=== PATIENT | female | born 1965 | race Caucasian/White ===

== ENCOUNTER 2021-03-19 14:09 | Inpatient (IN) | payer BC, SELFPAY ==
[~2021-03-19] VITALS: Ht 175.3 cm; Wt 114.8 kg
[~2021-03-19 14:09] MED LIST: ALBU17AE26 IH; ALBU2.5V IH; ALPR0.25 PO; FLUT1DIS3 IH; P-EP1TAB80 PO; Proair IH; WARF5TAB2 PO; YAZ PO; levoxyl PO
[2021-03-19 14:11] VITALS: BP_SYST 141
[2021-03-19 15:21] LABS: BASOPHILS % (AUTO) 0.5 % (0.0-2.0); HEMATOCRIT 40.8 % (36-48); HEMOGLOBIN 14.1 g/dL (12.0-16.0); LYMPHOCYTES % (AUTO) 15.2 % (20.5-51.5); MEAN CORPUSCULAR HEMOGLOBIN 29 pg (27-31); MEAN CORPUSCULAR HGB CONC 35 % (32-36); MEAN CORPUSCULAR VOLUME 83 fL (79.0-98.0); MONOCYTES # (AUTO) 0.3 K/uL (0.0-1.0); MONOCYTES % (AUTO) 4.2 % (1.7-9.3); NEUTROPHILS # (AUTO) 5.5 K/uL (1.8-7.7); NEUTROPHILS % (AUTO) 80.1 % (40.0-70.0); PLATELET COUNT (AUTO) 300 K/uL (130-430); RED BLOOD CELL COUNT(AUTO) 4.94 MIL/uL (4.2-6.2); RED CELL DISTRIBUTION WIDTH 13.3 % (9.0-15.0); WHITE BLOOD COUNT (AUTO) 6.9 K/uL (4.8-10.8)
[2021-03-19 15:32] LABS: CALCIUM 9.7 mg/dL (8.4-11.0); CREATININE 0.87 mg/dL (0.55-1.30)
[2021-03-19 15:41] LABS: ALBUMIN 3.9 g/dL (3.4-4.8); TOTAL BILIRUBIN 0.4 mg/dL (0.0-1.0)
[2021-03-19 16:11] LABS: POTASSIUM 2.7 mmol/L (3.5-5.1)
[2021-03-19] MEDS ORDERED: POTASSIUM CHLORIDE 20 MEQ TAB.PRT.SR PO ONE ×2 (16:15→23:15)
[2021-03-19 16:56] LABS: PROTHROMBIN TIME 10.3 SECS (9.5-12.5)
[2021-03-19] MEDS ORDERED: ALBU2.5V7 INH (17:12)
[2021-03-19] MEDS ORDERED: LEVO125T8 PO (17:12)
[2021-03-19] MEDS ORDERED: METO25TA3 PO (17:12)
[2021-03-19] MEDS ORDERED: HYG25 PO (17:12)
[2021-03-19] MEDS ORDERED: VITD2000 PO (17:12)
[2021-03-19] MEDS ORDERED: PRED10TA PO (17:12)
[2021-03-19] MEDS ORDERED: METF-834 PO (17:12)
[2021-03-19] MEDS ORDERED: CLOPIDOGREL BISULFATE 75 MG TABLET PO ONE (18:00)
[2021-03-19] MEDS ORDERED: ACETAMINOPHEN 325 MG TABLET PO PRN (18:45)
[2021-03-19] MEDS ORDERED: ALBUTEROL SULFATE 0.083% 2.5 MG/3 ML VIAL.NEB INH PRN (18:45)
[2021-03-19] MEDS ORDERED: CHOLECALCIFEROL (VITAMIN D3) 2,000 UNIT TABLET PO SCH (18:45)
[2021-03-19] MEDS ORDERED: CLOPIDOGREL BISULFATE 75 MG TABLET ONE (20:35)
[2021-03-19] MEDS: ENOXAPARIN SODIUM 40 MG/0.4 ML SYRINGE SUBCUT SCH (20:46)
[2021-03-19] MEDS: ASCORBIC ACID 500 MG TABLET PO SCH (21:00)
[2021-03-19 22:36] LABS: CREATININE 0.72 mg/dL (0.55-1.30)
[2021-03-19 22:56] LABS: POTASSIUM 2.8 mmol/L (3.5-5.1)
[2021-03-19] MEDS ORDERED: POTASSIUM CHLORIDE 20 MEQ TAB.PRT.SR ONE (23:13)
[2021-03-20] VITALS (7 sets, daily range): BP systolic 108–143
[2021-03-20 08:36] LABS: CALCIUM 8.9 mg/dL (8.4-11.0); CREATININE 0.66 mg/dL (0.55-1.30)
[2021-03-20] MEDS: ASCORBIC ACID 500 MG TABLET PO SCH ×2 (09:11→21:31)
[2021-03-20] MEDS: METOPROLOL SUCCINATE 25 MG TAB.SR.24H (TOPROL XL) PO SCH (09:11)
[2021-03-20] MEDS: predniSONE 10 MG TABLET PO SCH (09:11)
[2021-03-20] MEDS: LEVOTHYROXINE SODIUM 0.125 MG TABLET PO SCH (09:11)
[2021-03-20] MEDS: CHLORTHALIDONE 25 MG TABLET (HYGROTON) PO SCH (12:44)
[2021-03-20] MEDS ORDERED: POTASSIUM CHLORIDE 20 MEQ/PKT PACKET PO ONE (15:00)
[2021-03-20] MEDS ORDERED: CHOLECALCIFEROL (VITAMIN D3) 5,000 UNIT TABLET PO ONE (15:15)
[2021-03-20] MEDS: INSULIN REGULAR, HUMAN 100 UNITS/ML, 10 ML VIAL (humuLIN R) SUBCUT PRN (17:43)
[2021-03-20] MEDS: DOXYCYCLINE HYCLATE 100 MG CAPSULE PO SCH (21:32)
[2021-03-20] MEDS: ENOXAPARIN SODIUM 40 MG/0.4 ML SYRINGE SUBCUT SCH (21:35)
[2021-03-21 00:38] VITALS: BP_SYST 141
[2021-03-21 08:00] VITALS: BP_SYST 132
[2021-03-21 08:20] LABS: BASOPHILS % (AUTO) 0.5 % (0.0-2.0); EOSINOPHILS % (AUTO) 0.7 % (0.0-4.0); HEMATOCRIT 38.5 % (36-48); HEMOGLOBIN 13.3 g/dL (12.0-16.0); LYMPHOCYTES # (AUTO) 2.2 K/uL (1.0-5.5); MEAN CORPUSCULAR HEMOGLOBIN 29 pg (27-31); MEAN CORPUSCULAR HGB CONC 35 % (32-36); MEAN CORPUSCULAR VOLUME 83 fL (79.0-98.0); MONOCYTES # (AUTO) 0.5 K/uL (0.0-1.0); MONOCYTES % (AUTO) 8.7 % (1.7-9.3); NEUTROPHILS # (AUTO) 2.7 K/uL (1.8-7.7); NEUTROPHILS % (AUTO) 50.1 % (40.0-70.0); PLATELET COUNT (AUTO) 257 K/uL (130-430); RED BLOOD CELL COUNT(AUTO) 4.65 MIL/uL (4.2-6.2); RED CELL DISTRIBUTION WIDTH 13.1 % (9.0-15.0); WHITE BLOOD COUNT (AUTO) 5.5 K/uL (4.8-10.8)
[2021-03-21 09:01] LABS: ANION GAP 11 (5-15); CALCIUM 8.7 mg/dL (8.4-11.0); CHLORIDE 96 mmol/L (98-107); CREATININE 0.74 mg/dL (0.55-1.30); GLUCOSE 119 mg/dL (70-99); SODIUM SERUM 137 mmol/L (136-145); UREA NITROGEN, BLOOD 17 mg/dL (8-21)
[2021-03-21 09:05] LABS: C-REACTIVE PROTEIN QUANT < 0.2 mg/dL (0-0.5); GFR AFRICAN AMERICAN 105 mL/min (>90)
[2021-03-21] MEDS: DOXYCYCLINE HYCLATE 100 MG CAPSULE PO SCH ×2 (09:06→20:23)
[2021-03-21] MEDS: ASCORBIC ACID 500 MG TABLET PO SCH ×2 (09:06→20:23)
[2021-03-21] MEDS: LEVOTHYROXINE SODIUM 0.125 MG TABLET PO SCH (09:06)
[2021-03-21] MEDS: predniSONE 10 MG TABLET PO SCH (09:06)
[2021-03-21] MEDS: CHOLECALCIFEROL (VITAMIN D3) 5,000 UNIT TABLET PO SCH (09:06)
[2021-03-21] MEDS: METOPROLOL SUCCINATE 25 MG TAB.SR.24H (TOPROL XL) PO SCH (09:07)
[2021-03-21 12:00] VITALS: BP_SYST 125
[2021-03-21] MEDS: CHLORTHALIDONE 25 MG TABLET (HYGROTON) PO SCH (12:05)
[2021-03-21] MEDS: INSULIN REGULAR, HUMAN 100 UNITS/ML, 10 ML VIAL (humuLIN R) SUBCUT PRN ×2 (12:06→17:14)
[2021-03-21 16:00] VITALS: BP_SYST 146
[2021-03-21] MEDS ORDERED: POTASSIUM CHLORIDE 20 MEQ/PKT PACKET PO ONE ×2 (16:00→20:00)
[2021-03-21 19:45] VITALS: BP_SYST 117
[2021-03-21] MEDS: ENOXAPARIN SODIUM 40 MG/0.4 ML SYRINGE SUBCUT SCH (20:29)
[2021-03-22 00:46] VITALS: BP_SYST 118
[2021-03-22 07:20] LABS: CALCIUM 8.6 mg/dL (8.4-11.0); CREATININE 0.65 mg/dL (0.55-1.30)
[2021-03-22 07:22] LABS: BASOPHILS % (AUTO) 0.5 % (0.0-2.0); EOSINOPHILS % (AUTO) 0.6 % (0.0-4.0); HEMATOCRIT 38.5 % (36-48); LYMPHOCYTES # (AUTO) 2.4 K/uL (1.0-5.5); LYMPHOCYTES % (AUTO) 39.9 % (20.5-51.5); MEAN CORPUSCULAR HEMOGLOBIN 28 pg (27-31); MEAN CORPUSCULAR HGB CONC 34 % (32-36); MEAN CORPUSCULAR VOLUME 83 fL (79.0-98.0); MONOCYTES # (AUTO) 0.5 K/uL (0.0-1.0); MONOCYTES % (AUTO) 8.3 % (1.7-9.3); NEUTROPHILS # (AUTO) 3.1 K/uL (1.8-7.7); NEUTROPHILS % (AUTO) 50.7 % (40.0-70.0); PLATELET COUNT (AUTO) 269 K/uL (130-430); RED BLOOD CELL COUNT(AUTO) 4.63 MIL/uL (4.2-6.2); RED CELL DISTRIBUTION WIDTH 13.2 % (9.0-15.0)
[2021-03-22 07:44] LABS: POTASSIUM 2.7 mmol/L (3.5-5.1)
[2021-03-22 10:00] VITALS: BP_SYST 115
[2021-03-22] MEDS: ASCORBIC ACID 500 MG TABLET PO SCH ×2 (10:51→23:20)
[2021-03-22] MEDS: CHLORTHALIDONE 25 MG TABLET (HYGROTON) PO SCH (10:51)
[2021-03-22] MEDS: LEVOTHYROXINE SODIUM 0.125 MG TABLET PO SCH (10:51)
[2021-03-22] MEDS: predniSONE 10 MG TABLET PO SCH (10:52)
[2021-03-22] MEDS: DOXYCYCLINE HYCLATE 100 MG CAPSULE PO SCH ×2 (10:52→23:20)
[2021-03-22] MEDS: CHOLECALCIFEROL (VITAMIN D3) 5,000 UNIT TABLET PO SCH (10:52)
[2021-03-22] MEDS: METOPROLOL SUCCINATE 25 MG TAB.SR.24H (TOPROL XL) PO SCH (10:53)
[2021-03-22 11:43] VITALS: BP_SYST 125
[2021-03-22 15:45] VITALS: BP_SYST 123
[2021-03-22] MEDS ORDERED: POTASSIUM CHLORIDE 20 MEQ/PKT PACKET PO ONE ×2 (18:16→22:00)
[2021-03-22] MEDS: INSULIN REGULAR, HUMAN 100 UNITS/ML, 10 ML VIAL (humuLIN R) SUBCUT PRN (18:25)
[2021-03-22] MEDS ORDERED: POTASSIUM CHLORIDE 20 MEQ TAB.PRT.SR PO ONE (18:30)
[2021-03-22 21:16] VITALS: BP_SYST 139
[2021-03-22] MEDS: ENOXAPARIN SODIUM 40 MG/0.4 ML SYRINGE SUBCUT SCH (23:29)
[2021-03-22 23:41] VITALS: BP_SYST 127
[2021-03-23] MEDS: CHOLECALCIFEROL (VITAMIN D3) 5,000 UNIT TABLET PO SCH (10:59)
[2021-03-23] MEDS: METOPROLOL SUCCINATE 25 MG TAB.SR.24H (TOPROL XL) PO SCH (11:00)
[2021-03-23] MEDS: ASCORBIC ACID 500 MG TABLET PO SCH ×2 (11:00→21:31)
[2021-03-23] MEDS: DOXYCYCLINE HYCLATE 100 MG CAPSULE PO SCH ×2 (11:00→21:31)
[2021-03-23] MEDS: CHLORTHALIDONE 25 MG TABLET (HYGROTON) PO SCH (11:01)
[2021-03-23] MEDS: predniSONE 10 MG TABLET PO SCH (11:01)
[2021-03-23] MEDS: LEVOTHYROXINE SODIUM 0.125 MG TABLET PO SCH (11:01)
[2021-03-23 11:32] LABS: CALCIUM 8.8 mg/dL (8.4-11.0); CREATININE 0.63 mg/dL (0.55-1.30); POTASSIUM 3.3 mmol/L (3.5-5.1)
[2021-03-23 11:37] VITALS: BP_SYST 115
[2021-03-23 16:30] VITALS: BP_SYST 124
[2021-03-23] MEDS: ENOXAPARIN SODIUM 40 MG/0.4 ML SYRINGE SUBCUT SCH (21:32)
[2021-03-23] MEDS ORDERED: POTASSIUM CHLORIDE 20 MEQ TAB.PRT.SR PO ONE (21:45)
[2021-03-23 21:58] VITALS: BP_SYST 130
[2021-03-24 01:03] VITALS: BP_SYST 123
[2021-03-24 08:00] VITALS: BP_SYST 114
[2021-03-24 08:35] LABS: CALCIUM 8.5 mg/dL (8.4-11.0); CREATININE 0.71 mg/dL (0.55-1.30)
[2021-03-24] MEDS: predniSONE 10 MG TABLET PO SCH (09:00)
[2021-03-24] MEDS: CHLORTHALIDONE 25 MG TABLET (HYGROTON) PO SCH (09:00)
[2021-03-24] MEDS: METOPROLOL SUCCINATE 25 MG TAB.SR.24H (TOPROL XL) PO SCH (09:00)
[2021-03-24] MEDS: LEVOTHYROXINE SODIUM 0.125 MG TABLET PO SCH (09:00)
[2021-03-24] MEDS: DOXYCYCLINE HYCLATE 100 MG CAPSULE PO SCH ×2 (09:00→21:22)
[2021-03-24] MEDS: ASCORBIC ACID 500 MG TABLET PO SCH ×2 (09:00→21:22)
[2021-03-24] MEDS: POTASSIUM CHLORIDE 20 MEQ TAB.PRT.SR PO SCH (09:00)
[2021-03-24] MEDS: CHOLECALCIFEROL (VITAMIN D3) 5,000 UNIT TABLET PO SCH (09:00)
[2021-03-24 10:09] LABS: POTASSIUM 2.7 mmol/L (3.5-5.1)
[2021-03-24 12:00] VITALS: BP_SYST 130
[2021-03-24] MEDS ORDERED: POTASSIUM CHLORIDE 20 MEQ TAB.PRT.SR PO ONE (12:30)
[2021-03-24] MEDS: INSULIN REGULAR, HUMAN 100 UNITS/ML, 10 ML VIAL (humuLIN R) SUBCUT PRN ×2 (13:42→17:53)
[2021-03-24 15:55] VITALS: BP_SYST 135
[2021-03-24] MEDS: ENOXAPARIN SODIUM 40 MG/0.4 ML SYRINGE SUBCUT SCH (21:24)
[2021-03-24 22:09] VITALS: BP_SYST 115
[2021-03-25 00:31] VITALS: BP_SYST 114
[2021-03-25 08:00] VITALS: BP_SYST 115
[2021-03-25 08:52] LABS: CALCIUM 8.7 mg/dL (8.4-11.0); CREATININE 0.73 mg/dL (0.55-1.30)
[2021-03-25] MEDS: predniSONE 10 MG TABLET PO SCH (09:00)
[2021-03-25] MEDS: CHLORTHALIDONE 25 MG TABLET (HYGROTON) PO SCH (09:00)
[2021-03-25] MEDS: POTASSIUM CHLORIDE 20 MEQ TAB.PRT.SR PO SCH (09:00)
[2021-03-25] MEDS: ASCORBIC ACID 500 MG TABLET PO SCH ×2 (09:00→22:03)
[2021-03-25] MEDS: DOXYCYCLINE HYCLATE 100 MG CAPSULE PO SCH ×2 (09:00→22:03)
[2021-03-25] MEDS: METOPROLOL SUCCINATE 25 MG TAB.SR.24H (TOPROL XL) PO SCH (09:00)
[2021-03-25] MEDS: LEVOTHYROXINE SODIUM 0.125 MG TABLET PO SCH (09:00)
[2021-03-25] MEDS: CHOLECALCIFEROL (VITAMIN D3) 5,000 UNIT TABLET PO SCH (09:00)
[2021-03-25 09:43] LABS: POTASSIUM 2.7 mmol/L (3.5-5.1)
[2021-03-25 12:00] VITALS: BP_SYST 118
[2021-03-25] MEDS ORDERED: KCL 40 mEq in 100 mL (PREMIX) 100 ML IV ONE (12:30)
[2021-03-25] MEDS: INSULIN REGULAR, HUMAN 100 UNITS/ML, 10 ML VIAL (humuLIN R) SUBCUT PRN (13:48)
[2021-03-25] MEDS: POTASSIUM CHLORIDE 20 mEq in 100 mL (PREMIX) 100 ML x 2 doses IV SCH ×2 (13:48→14:45)
[2021-03-25 16:00] VITALS: BP_SYST 125
[2021-03-25] MEDS: ENOXAPARIN SODIUM 40 MG/0.4 ML SYRINGE SUBCUT SCH (22:04)
[2021-03-25 23:25] VITALS: BP_SYST 112
[2021-03-26 00:30] VITALS: BP_SYST 111
[2021-03-26 08:00] VITALS: BP_SYST 119
[2021-03-26 08:48] LABS: CALCIUM 8.8 mg/dL (8.4-11.0); CREATININE 0.73 mg/dL (0.55-1.30); POTASSIUM 3.3 mmol/L (3.5-5.1)
[2021-03-26] MEDS: CHLORTHALIDONE 25 MG TABLET (HYGROTON) PO SCH (09:00)
[2021-03-26] MEDS: CHOLECALCIFEROL (VITAMIN D3) 5,000 UNIT TABLET PO SCH (09:05)
[2021-03-26] MEDS: LEVOTHYROXINE SODIUM 0.125 MG TABLET PO SCH (09:05)
[2021-03-26] MEDS: DOXYCYCLINE HYCLATE 100 MG CAPSULE PO SCH ×2 (09:05→21:12)
[2021-03-26] MEDS: ASCORBIC ACID 500 MG TABLET PO SCH ×2 (09:05→21:12)
[2021-03-26] MEDS: predniSONE 10 MG TABLET PO SCH (09:06)
[2021-03-26] MEDS: METOPROLOL SUCCINATE 25 MG TAB.SR.24H (TOPROL XL) PO SCH (09:06)
[2021-03-26] MEDS: POTASSIUM CHLORIDE 20 MEQ TAB.PRT.SR PO SCH (09:07)
[2021-03-26 11:32] VITALS: BP_SYST 110
[2021-03-26 12:00] VITALS: BP_SYST 113
[2021-03-26 15:36] VITALS: BP_SYST 139
[2021-03-26] MEDS ORDERED: POTASSIUM CHLORIDE 20 MEQ TAB.PRT.SR PO ONE (18:15)
[2021-03-26] MEDS ORDERED: POTASSIUM CHLORIDE 40 MEQ, LIDOCAINE JECT 2% PF 100 MG 50 MG in NS 250 ML IV ONE (18:30)
[2021-03-26 20:00] VITALS: BP_SYST 120
[2021-03-26] MEDS: ENOXAPARIN SODIUM 40 MG/0.4 ML SYRINGE SUBCUT SCH (21:17)
[2021-03-27] VITALS: BP_SYST 122
[2021-03-27 07:57] LABS: CALCIUM 8.6 mg/dL (8.4-11.0); CREATININE 0.7 mg/dL (0.55-1.30); POTASSIUM 3.6 mmol/L (3.5-5.1)
[2021-03-27 08:00] VITALS: BP_SYST 120
[2021-03-27] MEDS: LEVOTHYROXINE SODIUM 0.125 MG TABLET PO SCH (08:27)
[2021-03-27] MEDS: ASCORBIC ACID 500 MG TABLET PO SCH ×2 (08:29→21:25)
[2021-03-27] MEDS: CHOLECALCIFEROL (VITAMIN D3) 5,000 UNIT TABLET PO SCH (08:29)
[2021-03-27] MEDS: CHLORTHALIDONE 25 MG TABLET (HYGROTON) PO SCH (08:29)
[2021-03-27] MEDS: METOPROLOL SUCCINATE 25 MG TAB.SR.24H (TOPROL XL) PO SCH (08:30)
[2021-03-27] MEDS: predniSONE 10 MG TABLET PO SCH (08:30)
[2021-03-27] MEDS: POTASSIUM CHLORIDE 20 MEQ TAB.PRT.SR PO SCH (08:30)
[2021-03-27 10:21] LABS: BASOPHILS # (AUTO) 0.1 K/uL (0.0-0.2); BASOPHILS % (AUTO) 0.8 % (0.0-2.0); EOSINOPHILS # (AUTO) 0.2 K/uL (0.0-0.4); EOSINOPHILS % (AUTO) 2.6 % (0.0-4.0); HEMATOCRIT 36.9 % (36-48); HEMOGLOBIN 12.4 g/dL (12.0-16.0); LYMPHOCYTES # (AUTO) 3.2 K/uL (1.0-5.5); LYMPHOCYTES % (AUTO) 39.8 % (20.5-51.5); MEAN CORPUSCULAR HEMOGLOBIN 28 pg (27-31); MEAN CORPUSCULAR HGB CONC 34 % (32-36); MEAN CORPUSCULAR VOLUME 84 fL (79.0-98.0); MONOCYTES # (AUTO) 0.5 K/uL (0.0-1.0); MONOCYTES % (AUTO) 6.5 % (1.7-9.3); NEUTROPHILS % (AUTO) 50.3 % (40.0-70.0); PLATELET COUNT (AUTO) 292 K/uL (130-430); RED BLOOD CELL COUNT(AUTO) 4.41 MIL/uL (4.2-6.2); RED CELL DISTRIBUTION WIDTH 13.6 % (9.0-15.0)
[2021-03-27] MEDS ORDERED: acetaZOLAMIDE 250 MG TABLET (DIAMOX) PO ONE (11:00)
[2021-03-27] MEDS ORDERED: MAGNESIUM SULFATE 50 ML IV ONE (11:00)
[2021-03-27 11:37] VITALS: BP_SYST 123
[2021-03-27 15:57] VITALS: BP_SYST 113
[2021-03-27] MEDS: INSULIN REGULAR, HUMAN 100 UNITS/ML, 10 ML VIAL (humuLIN R) SUBCUT PRN (17:54)
[2021-03-27] MEDS ORDERED: POTASSIUM CHLORIDE 20 MEQ TAB.PRT.SR PO ONE (20:00)
[2021-03-27 20:10] VITALS: BP_SYST 100
[2021-03-27] MEDS: acetaZOLAMIDE 250 MG TABLET (DIAMOX) PO SCH (21:26)
[2021-03-27] MEDS: ENOXAPARIN SODIUM 40 MG/0.4 ML SYRINGE SUBCUT SCH (21:27)
[2021-03-28 00:02] VITALS: BP_SYST 115
[2021-03-28 08:00] VITALS: BP_SYST 105
[2021-03-28 08:09] LABS: CALCIUM 8.7 mg/dL (8.4-11.0); CREATININE 0.82 mg/dL (0.55-1.30); PHOSPHORUS 4.7 mg/dL (2.7-4.5); POTASSIUM 3.2 mmol/L (3.5-5.1)
[2021-03-28] MEDS: POTASSIUM CHLORIDE 20 MEQ TAB.PRT.SR PO SCH (08:39)
[2021-03-28] MEDS: METOPROLOL SUCCINATE 25 MG TAB.SR.24H (TOPROL XL) PO SCH (08:39)
[2021-03-28] MEDS: LEVOTHYROXINE SODIUM 0.125 MG TABLET PO SCH (08:40)
[2021-03-28] MEDS: ASCORBIC ACID 500 MG TABLET PO SCH ×2 (08:40→22:18)
[2021-03-28] MEDS: acetaZOLAMIDE 250 MG TABLET (DIAMOX) PO SCH ×2 (08:40→22:18)
[2021-03-28] MEDS: predniSONE 10 MG TABLET PO SCH (08:40)
[2021-03-28] MEDS: CHOLECALCIFEROL (VITAMIN D3) 5,000 UNIT TABLET PO SCH (08:41)
[2021-03-28 12:30] VITALS: BP_SYST 110
[2021-03-28] MEDS: KCL 20 mEq in 100 mL (PREMIX) 100 ML IV SCH ×2 (14:10→16:32)
[2021-03-28 20:00] VITALS: BP_SYST 108
[2021-03-28] MEDS: ENOXAPARIN SODIUM 40 MG/0.4 ML SYRINGE SUBCUT SCH (22:19)
[2021-03-29] VITALS: BP_SYST 108
[2021-03-29 08:15] VITALS: BP_SYST 112
[2021-03-29] MEDS: METOPROLOL SUCCINATE 25 MG TAB.SR.24H (TOPROL XL) PO SCH (09:00)
[2021-03-29] MEDS: acetaZOLAMIDE 250 MG TABLET (DIAMOX) PO SCH ×2 (09:27→22:58)
[2021-03-29] MEDS: CHOLECALCIFEROL (VITAMIN D3) 5,000 UNIT TABLET PO SCH (09:28)
[2021-03-29] MEDS: POTASSIUM CHLORIDE 20 MEQ TAB.PRT.SR PO SCH (09:28)
[2021-03-29] MEDS: LEVOTHYROXINE SODIUM 0.125 MG TABLET PO SCH (09:29)
[2021-03-29] MEDS: predniSONE 10 MG TABLET PO SCH (09:29)
[2021-03-29] MEDS: ASCORBIC ACID 500 MG TABLET PO SCH ×2 (09:29→22:58)
[2021-03-29 11:37] VITALS: BP_SYST 130
[2021-03-29 11:37] LABS: CALCIUM 8.8 mg/dL (8.4-11.0); CREATININE 0.68 mg/dL (0.55-1.30)
[2021-03-29 11:42] LABS: POTASSIUM 2.8 mmol/L (3.5-5.1)
[2021-03-29] MEDS ORDERED: POTASSIUM CHLORIDE 40 MEQ in NS 250 ML IV ONE (12:00)
[2021-03-29 15:54] VITALS: BP_SYST 119
[2021-03-29] MEDS: INSULIN REGULAR, HUMAN 100 UNITS/ML, 10 ML VIAL (humuLIN R) SUBCUT PRN (17:48)
[2021-03-29 21:00] VITALS: BP_SYST 135
[2021-03-29] MEDS: ENOXAPARIN SODIUM 40 MG/0.4 ML SYRINGE SUBCUT SCH (23:00)
[2021-03-30 01:00] VITALS: BP_SYST 119
[2021-03-30 08:00] VITALS: BP_SYST 137
[2021-03-30 08:14] LABS: BASOPHILS # (AUTO) 0.1 K/uL (0.0-0.2); EOSINOPHILS # (AUTO) 0.2 K/uL (0.0-0.4); HEMOGLOBIN 12.2 g/dL (12.0-16.0); LYMPHOCYTES # (AUTO) 3.2 K/uL (1.0-5.5); LYMPHOCYTES % (AUTO) 32.8 % (20.5-51.5); MEAN CORPUSCULAR HEMOGLOBIN 28 pg (27-31); MEAN CORPUSCULAR HGB CONC 34 % (32-36); MEAN CORPUSCULAR VOLUME 83 fL (79.0-98.0); MONOCYTES # (AUTO) 0.5 K/uL (0.0-1.0); MONOCYTES % (AUTO) 5.2 % (1.7-9.3); NEUTROPHILS # (AUTO) 5.7 K/uL (1.8-7.7); PLATELET COUNT (AUTO) 334 K/uL (130-430); RED BLOOD CELL COUNT(AUTO) 4.34 MIL/uL (4.2-6.2); RED CELL DISTRIBUTION WIDTH 13.6 % (9.0-15.0); WHITE BLOOD COUNT (AUTO) 9.7 K/uL (4.8-10.8)
[2021-03-30 08:22] LABS: CALCIUM 8.7 mg/dL (8.4-11.0); CREATININE 0.62 mg/dL (0.55-1.30); POTASSIUM 3.7 mmol/L (3.5-5.1)
[2021-03-30] MEDS: CHOLECALCIFEROL (VITAMIN D3) 5,000 UNIT TABLET PO SCH (09:00)
[2021-03-30] MEDS: predniSONE 10 MG TABLET PO SCH (09:42)
[2021-03-30] MEDS: acetaZOLAMIDE 250 MG TABLET (DIAMOX) PO SCH ×2 (09:42→20:07)
[2021-03-30] MEDS: METOPROLOL SUCCINATE 25 MG TAB.SR.24H (TOPROL XL) PO SCH (09:42)
[2021-03-30] MEDS: LEVOTHYROXINE SODIUM 0.125 MG TABLET PO SCH (09:42)
[2021-03-30] MEDS: POTASSIUM CHLORIDE 20 MEQ TAB.PRT.SR PO SCH (09:43)
[2021-03-30] MEDS: ASCORBIC ACID 500 MG TABLET PO SCH ×2 (09:51→20:07)
[2021-03-30 12:00] VITALS: BP_SYST 122
[2021-03-30 14:33] VITALS: BP_SYST 137
[2021-03-30 16:00] VITALS: BP_SYST 118
[2021-03-30] MEDS: ENOXAPARIN SODIUM 40 MG/0.4 ML SYRINGE SUBCUT SCH (20:15)
[2021-03-30 20:45] VITALS: BP_SYST 116
[2021-03-31 01:00] VITALS: BP_SYST 121
[2021-03-31 07:00] LABS: BASOPHILS # (AUTO) 0.1 K/uL (0.0-0.2); BASOPHILS % (AUTO) 0.8 % (0.0-2.0); EOSINOPHILS # (AUTO) 0.3 K/uL (0.0-0.4); EOSINOPHILS % (AUTO) 2.8 % (0.0-4.0); HEMATOCRIT 34.9 % (36-48); HEMOGLOBIN 11.9 g/dL (12.0-16.0); LYMPHOCYTES # (AUTO) 3.6 K/uL (1.0-5.5); MEAN CORPUSCULAR HEMOGLOBIN 29 pg (27-31); MEAN CORPUSCULAR HGB CONC 34 % (32-36); MEAN CORPUSCULAR VOLUME 85 fL (79.0-98.0); MONOCYTES # (AUTO) 0.6 K/uL (0.0-1.0); MONOCYTES % (AUTO) 6.2 % (1.7-9.3); NEUTROPHILS # (AUTO) 5.6 K/uL (1.8-7.7); NEUTROPHILS % (AUTO) 55.2 % (40.0-70.0); PLATELET COUNT (AUTO) 310 K/uL (130-430); RED BLOOD CELL COUNT(AUTO) 4.13 MIL/uL (4.2-6.2); RED CELL DISTRIBUTION WIDTH 13.6 % (9.0-15.0); WHITE BLOOD COUNT (AUTO) 10.2 K/uL (4.8-10.8)
[2021-03-31 07:46] LABS: CALCIUM 8.6 mg/dL (8.4-11.0); CREATININE 0.81 mg/dL (0.55-1.30); POTASSIUM 3.6 mmol/L (3.5-5.1)
[2021-03-31 08:00] VITALS: BP_SYST 102
[2021-03-31] MEDS: METOPROLOL SUCCINATE 25 MG TAB.SR.24H (TOPROL XL) PO SCH (09:00)
[2021-03-31] MEDS: CHOLECALCIFEROL (VITAMIN D3) 5,000 UNIT TABLET PO SCH (10:43)
[2021-03-31] MEDS: predniSONE 10 MG TABLET PO SCH (10:44)
[2021-03-31] MEDS: POTASSIUM CHLORIDE 20 MEQ TAB.PRT.SR PO SCH (10:44)
[2021-03-31] MEDS: ASCORBIC ACID 500 MG TABLET PO SCH (10:44)
[2021-03-31] MEDS: LEVOTHYROXINE SODIUM 0.125 MG TABLET PO SCH (10:44)
[2021-03-31] MEDS: acetaZOLAMIDE 250 MG TABLET (DIAMOX) PO SCH (10:45)
[2021-03-31] MEDS: INSULIN REGULAR, HUMAN 100 UNITS/ML, 10 ML VIAL (humuLIN R) SUBCUT PRN (11:15)
[2021-03-31 11:36] VITALS: BP_SYST 102
[2021-03-31 15:29] VITALS: BP_SYST 111
[2021-03-31 15:48] VITALS: BP_SYST 111
== END 2021-03-31 16:55 | disposition home or self-care (01) | DRG 69 ==
LOC: SED 14:09 → STU 17:35
PROVIDERS: ADMIT Family Medicine; ATTEND Family Medicine
DX: G45.9 Transient cerebral ischemic attack, unspecified (principal); U07.1 COVID-19; E03.9 Hypothyroidism, unspecified; E11.9 Type 2 diabetes mellitus without complications; E87.6 Hypokalemia; I10 Essential (primary) hypertension; J45.909 Unspecified asthma, uncomplicated; Z85.850 Personal history of malignant neoplasm of thyroid; Z88.6 Allergy status to analgesic agent; Z88.8 Allergy status to other drugs, medicaments and biological substances; Z79.84 Long term (current) use of oral hypoglycemic drugs; Z79.899 Other long term (current) drug therapy; Z90.49 Acquired absence of other specified parts of digestive tract
CPT/HCPCS: 36415; 70450-TC; 71045; 76376; 80048; 80053; 82962; 83735; 83880; 84100; 84132; 84484; 85025; 85379; 85610-TC; 85730-TC; 86140; 93005; 93971; 99285; G0378; J1650; J1815; J3475; J3480; J7050; J7512